=== PATIENT | female | born 1960 | race Caucasian/White ===

== ENCOUNTER → 2016-11-15 | Outpatient (CLI) | payer BC | END | disposition home or self-care (01) | LOC: PCVCIMAG 09:12 | PROVIDERS: ATTEND Internal Medicine Cardiovascular Disease | DX: I70.1 Atherosclerosis of renal artery (principal); E78.00 Pure hypercholesterolemia, unspecified; I77.9 Disorder of arteries and arterioles, unspecified; E78.5 Hyperlipidemia, unspecified; I12.9 Hypertensive chronic kidney disease with stage 1 through stage 4 chronic kidney disease, or unspecified chronic kidney disease; N18.9 Chronic kidney disease, unspecified; I25.10 Atherosclerotic heart disease of native coronary artery without angina pectoris; K55.9 Vascular disorder of intestine, unspecified | CPT/HCPCS: 76770; 80061; 93005; 93975 ==

== ENCOUNTER → 2017-05-23 | Outpatient (CLI) | payer BC ==
--- NOTE | 2017-05-23 12:37 | PCVCIMAG ---
EXAM: MESENTERIC ARTERIAL DUPLEX INDICATION: Mesenteric Atherosclerosis. FINDINGS: Celiac [place]: Moderate velocity elevation celiac axis less prominent than prior study from 2016 consistent with mild stenosis. Superior Mesenteric Artery: Previous aorto-SMA bypass showing elevated velocities in the bypass although these are similar to prior study when adequate patency was present. Inferior Mesenteric Artery: No flow limiting stenosis. No branch vessel stenosis. Mesenteric veins are patent where seen. IMPRESSION: Mild restenosis celiac axis not felt to be critically flow-limiting. Aorta-SMA bypass maintaining adequate patency with unchanged velocity elevation in the bypass. LOC:[id number]
--- NOTE | 2017-05-23 12:43 | PCVCIMAG ---
EXAM: BILATERAL RENAL ULTRASOUND AND BILATERAL RENAL DUPLEX INDICATION: Hypertension FINDINGS: Right kidney: Length measures 6.6 cm. No hydronephrosis with moderate renal scarring. Right renal duplex: The [place] renal artery shows chronic occlusion. Left kidney: Length measures 10.6 cm. No hydronephrosis or extensive renal scarring. Left renal duplex: The [place] left renal artery shows chronic occlusion. Previous aortic to left renal artery bypass with previous stent within the bypass maintaining adequate patency. Again noted are moderate velocity elevations although less prominent than prior study and these have not been previously correlated with stenosis. Bladder: No obvious abnormalities. IMPRESSION: No hydronephrosis. 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 Aorto-left renal artery bypass maintaining adequate patency as described. LOC:[id number]
== END | disposition home or self-care (01) ==
LOC: PCVCIMAG 08:47
PROVIDERS: ATTEND Internal Medicine Cardiovascular Disease
DX: I77.4 Celiac artery compression syndrome (principal); I25.10 Atherosclerotic heart disease of native coronary artery without angina pectoris; I10 Essential (primary) hypertension; E78.00 Pure hypercholesterolemia, unspecified; R07.89 Other chest pain; I70.1 Atherosclerosis of renal artery; I25.2 Old myocardial infarction; I73.9 Peripheral vascular disease, unspecified; Z78.0 Asymptomatic menopausal state; Z98.51 Tubal ligation status; Z79.82 Long term (current) use of aspirin; Z87.891 Personal history of nicotine dependence; Z88.0 Allergy status to penicillin; Z95.828 Presence of other vascular implants and grafts
CPT/HCPCS: 76770; 80061; 93005; 93975; 93978; G0463

== ENCOUNTER → 2017-09-18 | Outpatient (CLI) | payer BC | END | disposition home or self-care (01) | LOC: PCVCIMAG 09:49 | DX: I25.10 Atherosclerotic heart disease of native coronary artery without angina pectoris (principal); I10 Essential (primary) hypertension; E78.5 Hyperlipidemia, unspecified; Z95.5 Presence of coronary angioplasty implant and graft | CPT/HCPCS: 93325; 93351 ==

== ENCOUNTER → 2018-02-26 | Outpatient (CLI) | payer BC | END | disposition home or self-care (01) | LOC: PCVCIMAG 08:42 | DX: K55.1 Chronic vascular disorders of intestine (principal); I10 Essential (primary) hypertension; N28.0 Ischemia and infarction of kidney; N26.1 Atrophy of kidney (terminal); I73.9 Peripheral vascular disease, unspecified | CPT/HCPCS: 76770; 93975; 93978 ==

== ENCOUNTER → 2018-10-29 | Outpatient (CLI) | payer BC, OTHER ==
--- NOTE | 2018-10-29 09:43 | PCVCIMAG ---
EXAM: MESENTERIC ARTERIAL DUPLEX INDICATION: Mesenteric Atherosclerosis. FINDINGS: Celiac [place]: No flow limiting stenosis. No branch vessel stenosis. Previous stent maintaining satisfactory patency. Superior Mesenteric Artery: Occlusion origin [place] superior mesenteric artery. Previous aorto-superior mesenteric artery bypass maintaining satisfactory patency. Inferior Mesenteric Artery: No flow limiting stenosis. No branch vessel stenosis. Mesenteric veins are patent where seen. IMPRESSION: Previous stent celiac axis maintaining satisfactory patency. Previous aorto-superior mesenteric artery bypass graft maintaining satisfactory patency. Inferior mesenteric artery remains patent. LOC:[id number]
--- NOTE | 2018-10-29 09:43 | PCVCIMAG ---
EXAM: AORTOILIAC DUPLEX INDICATION: Peripheral arterial disease FINDINGS: AORTA: Suprarenal aorta measures maximum diameter of 2.9 cm. There is not a fusiform infrarenal aortic aneurysm. The infrarenal aorta measures maximum diameter of 2.3 cm. Mild juxtarenal stenosis unchanged since prior study. RIGHT COMMON ILIAC ARTERY: Maximum diameter is 1.0 cm. No significant stenosis. RIGHT EXTERNAL ILIAC ARTERY: No significant stenosis. LEFT COMMON ILIAC ARTERY: Maximum diameter is 1.0 cm. No significant stenosis. LEFT EXTERNAL ILIAC ARTERY: No significant stenosis. IMPRESSION: Previous stent in the aorta at the level of the renal arteries showing mild stenosis which is unchanged. No abdominal aortic aneurysm. LOC:[id number]
== END | disposition home or self-care (01) ==
LOC: PCVCIMAG 08:02
PROVIDERS: ATTEND Internal Medicine Cardiovascular Disease
DX: I73.9 Peripheral vascular disease, unspecified (principal); K55.1 Chronic vascular disorders of intestine
CPT/HCPCS: 93975; 93978